=== PATIENT | female | born 1995 | race Two or more races ===

== ENCOUNTER 2022-11-04 16:32 | Emergency (ER) | payer SELFPAY ==
--- NOTE | 2022-11-04 16:38 | ED.WOUNDLAC ---
HPI - Wound/Laceration General Chief Complaint: Wound/Laceration Stated Complaint: laceration finger Time Seen by Provider: 11/04/22 16:37 Source: patient Mode of arrival: ambulatory Limitations: no limitations History of Present Illness HPI narrative: Mahogany is a 26-year-old female patient today presenting to clinic today with a laceration to the left distal index finger. She reports she was cutting a lemon and took her eye off the knife and actually cut her finger. Her tetanus shot status is not up-to-date. Related Data Home Medications Medication Instructions Recorded Confirmed No Home Medications 11/04/22 11/04/22 Allergies Allergy/AdvReac Type Severity Reaction Status Date / Time No Known Allergies Allergy Unverified 11/04/22 16:38 Review of Systems Review of Systems: Pertinent positives per HPI. Patient denies any fever, chills, rash, headache, visual changes, dizziness, cough, runny nose, sore throat, shortness of breath, chest pain, palpitations, nausea, vomiting, diarrhea, constipation, abdominal pain, or any urinary issues. PMFSH Social History Social History Smoking status: Current every day smoker Alcohol intake: never Comments At the time of my signature, I reviewed and agree with the nursing past medical, surgical, social, and family history. There is no relevant family history pertinent to the patient complaint. Exam Narrative: General: Well-developed, well nourished, in no apparent distress Head: Normocephalic, atraumatic. Cardio: Regular rate and rhythm, s1 and s2 normal, no murmur appreciated. Resp: Clear to auscultation bilaterally, no rhonchi, rales, wheezing or rubs. Integumentary: [place], warm, and dry, 0.5 cm laceration to the left index finger without involvement of the nail Course Course Emergency Course: Portions of this record may have been created with voice recognition software. Level of Care: Express Care Visit Vital Signs Vital signs: Vital Signs Temperature 36.9 C 11/04/22 16:39 Pulse Rate 95 11/04/22 16:39 Respiratory Rate 16 11/04/22 16:39 Blood Pressure 123/64 11/04/22 16:39 Pulse Oximetry 100 11/04/22 16:39 Oxygen Delivery Room Air 11/04/22 16:39 Temperature 36.9 C 11/04/22 16:49 Pulse Rate 95 11/04/22 16:49 Respiratory Rate 16 11/04/22 16:49 Blood Pressure 123/64 11/04/22 16:49 Pulse Oximetry 100 11/04/22 16:49 Oxygen Delivery Room Air 11/04/22 16:49 Vital signs reviewed Procedures Laceration Laceration 1: Date: 11/04/22 Side (If applicable): left Size (cm): 0.5 Description: linear and flap Depth: simple, single layer Local Anesthetic: lidocaine 1% Amount of anesthesia used (mL): 2.5 Pre-repair: wound explored and irrigated ====== Skin Level ====== Skin layer closed with: nylon Size (cm): 5-0 Number of sutures: 3 Technique: simple, interrupted ====== Subcutaneous Layer ====== ====== Muscle Layer ====== ====== Tendon Layer ====== Dressing: Verbal consent obtained for laceration repair. Risk and benefits explained and patient voiced understanding. Area was cleansed with Techni care and a 25 gauge needle was then used to instill (2.5) ml of 1% lidocaine without epi to create a digital block to the distal finger. Area was prepped and draped using sterile technique. A 5-0 suture on a p needle was used to place (3) interrupted sutures bringing the wound edges together- well approximated. Patient tolerated procedure well. Sterile dressing applied. MDM - Wound/Laceration MDM Narrative Medical decision making narrative: At the time of visit patient is resting comfortably on the exam table. patient has distal finger laceration without nail involvement. 0.5 cm laceration to the distal finger. Laceration repair per was performed and 3
[2022-11-04 16:39] VITALS: BP 123/64; PULSE 95; RESP 16; TEMP 36.9; O2SAT 100
[2022-11-04 16:49] VITALS: BP 123/64; PULSE 95; RESP 16; TEMP 36.9; O2SAT 100
--- NOTE | 2022-11-04 16:54 | PC.NURSE ---
stated is self pay and would prefer to hold on tdap at this time.
== END 2022-11-04 17:20 | disposition home or self-care (01) ==
PROVIDERS: Emergency Provider Nurse Practitioner Family; PCP Emergency Medicine
DX: S61.211A Laceration without foreign body of left index finger without damage to nail, initial encounter (principal); W26.0XXA Contact with knife, initial encounter; Y93.G1 Activity, food preparation and clean up; F17.200 Nicotine dependence, unspecified, uncomplicated
CPT/HCPCS: 12001; 99212; G0463

== ENCOUNTER 2022-11-11 16:45 | Emergency (ER) | payer SELFPAY ==
[2022-11-11 16:51] VITALS: BP 120/71; PULSE 100; RESP 18; TEMP 36.3; O2SAT 100
--- NOTE | 2022-11-11 17:07 | ED.SKABFB ---
HPI - Skin/Abscess/Foreign Bdy General Chief complaint: Skin/Abscess/Foreign Body Stated complaint: stitches removal Time Seen by Provider: 11/11/22 17:05 Source: patient Mode of arrival: ambulatory Limitations: no limitations History of Present Illness HPI narrative: Mahogany is a 27-year-old female patient presenting to the clinic today for suture removal of the left index finger. States she went to [facility] for hand swelling in the same extremity however the wound does not appear to be infected. X-rays were completed of her left hand and were negative. They placed her on an antibiotic for possible infection Related Data Home Medications Medication Instructions Recorded Confirmed Unknown Antibiotic 11/11/22 Allergies Allergy/AdvReac Type Severity Reaction Status Date / Time No Known Allergies Allergy Verified 11/11/22 16:53 Review of Systems Review of Systems: Pertinent positives per HPI. Patient denies any fever, chills, rash, headache, visual changes, dizziness, cough, runny nose, sore throat, shortness of breath, chest pain, palpitations, nausea, vomiting, diarrhea, constipation, abdominal pain, or any urinary issues. PMFSH Social History Social History Smoking status: Current every day smoker Alcohol intake: never Comments At the time of my signature, I reviewed and agree with the nursing past medical, surgical, social, and family history. There is no relevant family history pertinent to the patient complaint. Exam Narrative: General: Well-developed, well nourished, in no apparent distress Head: Normocephalic, atraumatic. Cardio: Regular rate and rhythm, s1 and s2 normal, no murmur appreciated. Resp: Clear to auscultation bilaterally, no rhonchi, rales, wheezing or rubs. Integumentary: [place], warm, and dry, intact without lesion, no rashes. well-healing wound to the distal left index finger. 3 interrupted sutures were removed- patient does have swelling to the left hand no redness or discharge noted around the wound Course Course Emergency Course: Portions of this record may have been created with voice recognition software. Level of Care: Express Care Visit Vital Signs Vital signs: Vital Signs Temperature 36.3 C L 11/11/22 16:51 Pulse Rate 100 11/11/22 16:51 Respiratory Rate 18 11/11/22 16:51 Blood Pressure 120/71 11/11/22 16:51 Pulse Oximetry 100 11/11/22 16:51 Oxygen Delivery Room Air 11/11/22 16:51 Temperature 36.3 C L 11/11/22 16:51 Pulse Rate 100 11/11/22 16:51 Respiratory Rate 18 11/11/22 16:51 Blood Pressure 120/71 11/11/22 16:51 Pulse Oximetry 100 11/11/22 16:51 Oxygen Delivery Room Air 11/11/22 16:51 Vital signs reviewed MDM - Skin/Abscess/Foreign Bdy MDM Narrative Medical decision making narrative: At the time of visit patient is resting comfortably on the exam table. Three interrupted sutures were removed. Wound appears to be well healing. Discharge Plan Discharge Clinical Impression: Encounter for removal of sutures Patient Disposition: Home, Self-Care Condition: Stable Instructions: Antibiotic Form, Stitches Removal (ED) Additional Instructions: 3 sutures were removed from the left index finger today follow-up with your PCP as needed Prescriptions: No Action Unknown Antibiotic Follow-up/Referrals: Iván Talbert MD [Primary Care Provider] - Time of Disposition: 17:08 Quality NIHSS Nursing Documentation ED NIHSS nursing documentation: reviewed/agree
== END 2022-11-11 17:18 | disposition home or self-care (01) ==
PROVIDERS: Emergency Provider Nurse Practitioner Family; PCP Emergency Medicine
DX: Z48.02 Encounter for removal of sutures (principal); F17.200 Nicotine dependence, unspecified, uncomplicated
CPT/HCPCS: 99211; G0463

== ENCOUNTER → 2022-12-02 16:44 | Outpatient (CLI) | payer SELFPAY ==
--- NOTE | ~2022-12-02 | XR_ITS ---
EXAMINATION: XR chest 2V DATE: 12/02/2022 16:59 INDICATION: Pleuritic chest pain. TECHNIQUE: Frontal and lateral views of the chest were obtained. COMPARISON: CT abdomen and pelvis 04/23/2016 FINDINGS: There is no pneumonia, pleural effusion, or pneumothorax. The heart size is normal. IMPRESSION: 1. No acute cardiopulmonary disease. Reviewed, dictated and finalized at location A. AND CREDIT MANAGER
--- NOTE | ~2022-12-02 | XR_ITS ---
EXAMINATION: XR hand LT min 3V DATE: 12/02/2022 17:00 INDICATION: Left hand swelling. TECHNIQUE: 3 views of left hand were obtained. COMPARISON: None. FINDINGS: Bone alignment is normal. No fracture. Joint spaces are well maintained. IMPRESSION: 1. Normal left hand. Reviewed, dictated and finalized at location A. ATIONS ENGINEER IMPRESSION: 1. Normal left hand.
== END ==
PROVIDERS: PCP Emergency Medicine; Visit Provider Emergency Medicine
DX: R07.81 Pleurodynia (principal); R22.32 Localized swelling, mass and lump, left upper limb; W19.XXXA Unspecified fall, initial encounter
CPT/HCPCS: 71046; 73130

== ENCOUNTER 2023-07-16 23:19 | Emergency (ER) | payer OTHER, SELFPAY ==
[2023-07-16 23:23] VITALS: BP 132/81; PULSE 78; RESP 14; TEMP 36.4; O2SAT 98
--- NOTE | 2023-07-16 23:31 | PC.NURSE ---
pt. to triage stating my daughter isn't feeling well, i need to go. pt. VSS
== END 2023-07-16 23:31 | disposition left against medical advice (07) ==
PROVIDERS: PCP Emergency Medicine
DX: M79.642 Pain in left hand (principal)
CPT/HCPCS: 99199

== ENCOUNTER 2023-10-09 23:07 | Emergency (ER) | payer OTHER, SELFPAY ==
--- NOTE | ~2023-10-09 | CT_ITS ---
EXAMINATION: CT abdomen pelvis w con INDICATION: Left flank pain TECHNIQUE: Computed tomographic images of the abdomen and pelvis were obtained after the administrati on of 100 cc of Omnipaque 350 intravenous contrast. The dose-length product (DLP) was 492.46 mGy-cm. Automated exposure control and iterative reconstruction technique were employed. COMPARISON: 04/23/2016 FINDINGS: The lung bases are clear. The heart size is normal. The liver, spleen, pancreas, gallbladde r, and adrenal glands are normal. The kidneys are unremarkable. No pathologically enlarged abdominal or pelvic lymph nodes are identified. No free intraperitoneal gas or evidence of bowel obstruction. T he appendix is normal. An IUD is present in expected position. IMPRESSION: 1. No CT correlate for the patient's symptoms. Reviewed, dictated and finalized at location F. N GRADER
[2023-10-09 23:13] VITALS: BP 140/80; PULSE 85; RESP 16; TEMP 36.2; O2SAT 99
[2023-10-09 23:39] LABS: Basophils Percent Auto 0.2 % (0.2-1.2); Eosinophils Absolute Auto 0.1 K/mm3 (0-0.3); Hemoglobin 12.3 g/dL (12.0-15.0); Immature Granulocyte Absolute 0.04 K/mm3 (0.00-0.031); Immature Granulocyte Percent A 0.3 % (0-0.5); Lymphocytes Absolute Auto 2.99 K/mm3 (0.9-3.2); Lymphocytes Percent Auto 23.8 % (18.3-44.2); Mean Corpuscular HGB Conc 31.5 g/dl (32-36); Mean Corpuscular Hemoglobin 24.6 pg (26-34); Mean Corpuscular Volume 77.8 fl (80-100); Mean Platelet Volume 11.3 fl (7.4-10.4); Monocytes Absolute Auto 0.7 K/mm3 (0.1-0.6); Monocytes Percent Auto 5.4 % (2.6-8.5); Neutrophils Absolute Auto 8.7 K/mm3 (1.3-6.7); Neutrophils Percent Auto 69.3 % (45.5-73.1); Platelet Count Result 228 k/mm3 (150-375); Red Blood Count 5.01 M/mm3 (4.2-5.4); Red Cell Distribution Width 15.9 % (11.5-14.5); White Blood Count 12.6 K/mm3 (4.5-10.0)
[2023-10-09 23:48] LABS: Alanine Aminotransferase 22 U/L (6-35); Albumin Level 4.6 g/dL (3.5-5.1); Alkaline Phosphatase 60 U/L (38-126); Anion Gap 12 mmol/L (8-16); Aspartate Amino Transferase 27 U/L (14-36); Bilirubin,Total 0.7 mg/dL (0.2-1.3); Blood Urea Nitrogen 7 mg/dL (7-17); Calcium 9.5 mg/dL (8.4-10.2); Carbon Dioxide 21 mmol/L (22-30); Chloride 103 mmol/L (98-107); Estimated CRCL calculation 155 ml/min; Estimated Glomerular Filt Rate > 60; Glucose 149 mg/dL (65-110); Potassium 3.3 mmol/L (3.4-5.0); Sodium 136 mmol/L (137-145)
[2023-10-10] VITALS (18 sets, daily range): BP systolic 126–138; BP diastolic 77–100; PULSE 74–78; RESP 16–20; O2SAT 96–100
[2023-10-10 03:54] LABS: Appearance Urine Clear (Clear); Bacteria Urine None Seen /hpf; Bilirubin Urine Negative (Negative); Blood Urine 3+ (Negative); Color Urine Yellow (Yellow); Glucose Urine UA Negative (Negative); Ketones Urine Negative (Negative); Leukocyte Esterase Ur Trace LEU/UL (Negative); Need Manual Microscopic Reviewed; Nitrate Urine Negative (Negative); Non Pathogenic Casts 0-2; Protein Urine Negative (Negative); Specific Grav Ur 1.003 (1.001-1.035); Squamous Epithelial Cell Urine Occasional /hpf (Few); Urobilinogen Urine 0.2 mg/dL (<2.0); WBC Urine 0-5 /hpf; pH Urine 6.5 (5.0-9.0)
[2023-10-10 03:58] LABS: Add Urine Microscopic? YES
[2023-10-10] MEDS: SODIUM CHLORIDE 0.9% IV 1,000 ML 999 ML IV CONT (07:51)
[2023-10-10] MEDS: KETOROLAC 30 MG/ML VIAL (*BKC) IV PUSH (07:52)
--- NOTE | 2023-10-10 08:09 | ED.BACK ---
HPI - Back Pain/Injury General Chief Complaint: Back Pain/Injury Stated Complaint: back pain Time Seen by Provider: 10/10/23 07:07 Source: patient, RN notes reviewed and old records reviewed Mode of arrival: ambulatory Limitations: no limitations History of Present Illness HPI Narrative: This is a 27 year old female who presents for evaluation of left flank pain. She developed pain 1 week ago . She reports pain starts on left flank and radiates across her back pain. Her pain resolved but it returned last night. She reports pain is worse with movement such as sitting up. She took aleve last night. She was sleeping when I walked into room. She denies associated cough, sob, nausea, vomiting, or urinary symptoms. She denies any trauma. Related Data Home Medications Medication Instructions Recorded Confirmed cephalexin 500 mg capsule mg 10/10/23 paroxetine HCl 20 mg tablet mg PO 10/10/23 Allergies Allergy/AdvReac Type Severity Reaction Status Date / Time No Known Allergies Allergy Verified 10/10/23 04:35 Review of Systems Constitutional: Constitutional: Denies weakness Cardiovascular: Cardiovascular: Denies syncope, Denies rapid heart rate, Denies irregular heart rhythm, Denies leg edema and Denies dyspnea Respiratory: Respiratory: Denies chest congestion, Denies hemoptysis, Denies excessive phlegm production and Denies dyspnea Gastrointestinal: Gastrointestinal: Denies abdominal pain, Denies hematochezia, Denies diarrhea and Denies vomiting Genitourinary: Genitourinary: Denies hematuria, Denies dysuria and Reports flank pain Musculoskeletal: Musculoskeletal: Reports back pain, Denies joint swelling, Denies loss of height and Denies muscle weakness Neurologic: Denies syncope, Denies focal weakness and Denies weakness [facility] Past Medical History Medical History Carpal tunnel syndrome of left wrist Gestational hypertension Surgical History Surgical History History of gynecological procedure (07/18/19) paragard Insertion Social History Social History Smoking packs per day: 0.5 Smoking cigarettes per day: 10.0 Smoking status: Current every day smoker Tobacco type: cigarettes Alcohol intake: never Substance use: never Substance use type: does not use Living arrangements: other Additional living arrangements comments: Occupation/Education: occupation Additional occupation/education comments: waiteress Gender identity (if verbalized by the patient): Female Sexual Orientation (if Verbalized by the Patient): Straight or Heterosexual Exam Const: General: no acute distress and alert Nutritional Appearance: well nourished Orientation/consciousness: patient oriented x3 Limitations: no limitations HENMT: Head: normal to inspection Eyes: EOM: EOMs intact bilaterally Neck: Neck: normal visual inspection Chest: Chest palpation & inspection: normal inspection of the chest Resp: Effort & Inspection: normal respiratory effort Auscultation: clear to auscultation bilaterally Cardio: Rate: regular rate Rhythm: regular rhythm Heart sounds: no murmurs GI: GI Palp: Yes Soft to palpation, No Tenderness to palpation present (GI), No Guarding due to palpation present (GI) and No Rigid due to palpation Auscultation: normal bowel sounds Skin: General skin exam: normal color Rashes: no rashes Wounds: no wounds Neuro: General: patient oriented x3, moves all extremities and CN's II-XI intact bilaterally Extrem: General: normal to inspection Psych: Mental Status: mental status grossly normal Affect: normal affect Attitude: cooperative Course Reevaluation(s) Reevaluation #1: I discussed with patient and mother that CT did not show any issues with her kidney. She does not have pyelonephritis on CT or labs
[2023-10-10 08:44] LABS: Lipase 35 U/L (23-300)
== END 2023-10-10 10:24 | disposition home or self-care (01) ==
PROVIDERS: Emergency Medicine; Emergency Provider General Practice; PCP Emergency Medicine
DX: R10.9 Unspecified abdominal pain (principal); F17.210 Nicotine dependence, cigarettes, uncomplicated
CPT/HCPCS: 36415; 74177; 80053; 81001; 81025; 83690; 85025; 96361; 96374; 99284; J1885; J7030; Q9967

== ENCOUNTER 2024-01-19 17:08 | Emergency (ER) | payer OTHER, SELFPAY ==
--- NOTE | ~2024-01-19 | XR_ITS ---
EXAMINATION: XR chest 2V DATE: 01/19/2024 18:31 INDICATION: Chest pain. TECHNIQUE: Frontal and lateral views of the chest were obtained. COMPARISON: Chest 2 views 12/02/2022, CT abdomen and pelvis 10/10/2023 FINDINGS: There is no pneumonia, pleural effusion, or pneumothorax. The heart size is normal. IMPRESSION: 1. No acute cardiopulmonary disease. Reviewed, dictated and finalized at location E. GENCY COMMUNICATIONS OFFICER
--- NOTE | 2024-01-19 17:10 | ECG_ITS ---
Measurements Intervals [place] Rate: 73 P: 27 WA: 156 QRS: 38 QRSD: 113 T: 22 QT: 379 QTc: 420 Interpretive Statements SINUS RHYTHM INCOMPLETE RIGHT BUNDLE BRANCH BLOCK BORDERLINE T WAVE ABNORMALITY- ANTERIOR LEADS BASELINE ARTIFACT- I, III, AVR, AVL, AVF, V1-V6 BORDERLINE ECG NO PREVIOUS ECG AVAILABLE FOR COMPARISON Electronically Signed On 01-19-2024 20:03:43 LUBE MAN by Willian Valdez D.O.
--- NOTE | 2024-01-19 17:11 | ED.CHESTPAIN ---
HPI - Chest Pain General Chief Complaint: Chest Pain Stated Complaint: chest heaviness Time Seen by Provider: 01/19/24 17:11 Focused HPI: This is a 28 year old female that presents to the ER for chest heaviness. Ongoing today. Associated with exertional dyspnea. Her doctor advised her to come to the ER to be seen. Reports a dry cough. Pain is worse with breathing. Denies fever or lower extremity edema. GENERAL: Well-appearing, well-nourished, and in no acute distress. HEAD: Normocephalic, atraumatic. CHEST: No respiratory distress. HEART: Regular rate NEURO: ?Alert and oriented x3. Patient screened in triage and initial orders placed.? ?Additional care and disposition to be based upon?diagnostic testing and treatment. Related Data Home Medications Medication Instructions Recorded Confirmed cephalexin 500 mg capsule mg 10/10/23 paroxetine HCl 20 mg tablet mg PO 10/10/23 Allergies Allergy/AdvReac Type Severity Reaction Status Date / Time No Known Allergies Allergy Verified 10/10/23 04:35 Review of Systems Review of Systems: CONSTITUTIONAL: Denies fever CARDIOVASCULAR: Reports chest pain. Denies edema. RESPIRATORY: Reports cough and dyspnea. All systems reviewed & are unremarkable except as noted in HPI and below PMFSH Past Medical History Medical History Carpal tunnel syndrome of left wrist Gestational hypertension Surgical History Surgical History History of gynecological procedure (07/18/19) paragard Insertion Social History Social History Smoking packs per day: 0.5 Smoking cigarettes per day: 10.0 Smoking status: Current every day smoker Tobacco type: cigarettes Alcohol intake: never Substance use: never Substance use type: does not use Living arrangements: other Additional living arrangements comments: Occupation/Education: occupation Additional occupation/education comments: waitshah[employer] Gender identity (if verbalized by the patient): Female Sexual Orientation (if Verbalized by the Patient): Straight or Heterosexual Exam Narrative: GENERAL: Well-appearing, well-nourished, and in no acute distress. HEAD: Normocephalic, atraumatic. EYES: EOMI. CHEST: Clear to auscultation. No respiratory distress. No wheezes rales or rhonchi HEART: Regular rate and rhythm. No murmur heard. Normal peripheral pulses. EXTREMITIES: Normal range of motion. No edema. SKIN: Warm, dry, no rash. NEURO: No focal deficits. Alert and oriented x3. PSYCH: Normal mood and affect Course Course Emergency Course: Patient eloped after MSE and before any further evaluation or management Vital Signs Vital signs: Vital Signs Temperature 97.6 F 01/19/24 17:21 Pulse Rate 81 01/19/24 17:21 Respiratory Rate 18 01/19/24 17:21 Blood Pressure 144/76 H 01/19/24 17:21 Pulse Oximetry 100 01/19/24 17:21 Temperature 97.6 F 01/19/24 17:21 Pulse Rate 81 01/19/24 17:21 Respiratory Rate 18 01/19/24 17:21 Blood Pressure 144/76 H 01/19/24 17:21 Pulse Oximetry 100 01/19/24 17:21 MDM - Chest Pain Lab Data 01/19/24 18:04 01/19/24 18:04 Labs: Lab Results 01/19/24 01/19/24 Range/Units 18:04 18:04 WBC 10.5 H (4.5-10.0) K/mm3 RBC 4.73 (4.2-5.4) M/mm3 Hgb 11.8 L (12.0-15.0) g/dL Hct 37.5 (37.0-47.0) % MCV 79.3 L (80-100) fl MCH 24.9 L (26-34) pg MCHC 31.5 L (32-36) g/dl RDW 15.6 H (11.5-14.5) % Plt Count 213 (150-375) k/mm3 MPV 11.5 H (7.4-10.4) fl Immature Gran % (Auto) 0.4 (0-0.5) % Neut % (Auto) 68.0 (45.5-73.1) % Lymph % (Auto) 23.3 (18.3-44.2) % [place] % (Auto) 6.9 (2.6-8.5) % Eos % (Auto) 1.1 (0-4.4) % Baso % (Auto) 0.3 (0.2-1.2) % Lymph # (Auto) 2.44 (0.9-3.2) K/mm3 [place] # (Auto)
[2024-01-19 17:21] VITALS: BP 144/76; PULSE 81; RESP 18; TEMP 36.4; O2SAT 100
[2024-01-19 18:12] LABS: Basophils Percent Auto 0.3 % (0.2-1.2); Eosinophils Absolute Auto 0.1 K/mm3 (0-0.3); Eosinophils Percent Auto 1.1 % (0-4.4); Hematocrit 37.5 % (37.0-47.0); Hemoglobin 11.8 g/dL (12.0-15.0); Immature Granulocyte Absolute 0.04 K/mm3 (0.00-0.031); Immature Granulocyte Percent A 0.4 % (0-0.5); Lymphocytes Absolute Auto 2.44 K/mm3 (0.9-3.2); Lymphocytes Percent Auto 23.3 % (18.3-44.2); Mean Corpuscular HGB Conc 31.5 g/dl (32-36); Mean Corpuscular Hemoglobin 24.9 pg (26-34); Mean Corpuscular Volume 79.3 fl (80-100); Mean Platelet Volume 11.5 fl (7.4-10.4); Monocytes Absolute Auto 0.7 K/mm3 (0.1-0.6); Monocytes Percent Auto 6.9 % (2.6-8.5); Neutrophils Absolute Auto 7.1 K/mm3 (1.3-6.7); Platelet Count Result 213 k/mm3 (150-375); Red Blood Count 4.73 M/mm3 (4.2-5.4); Red Cell Distribution Width 15.6 % (11.5-14.5); White Blood Count 10.5 K/mm3 (4.5-10.0)
[2024-01-19 18:22] LABS: Alanine Aminotransferase 22 U/L (6-35); Albumin Level 4.5 g/dL (3.5-5.1); Alkaline Phosphatase 63 U/L (38-126); Anion Gap 9 mmol/L (8-16); Aspartate Amino Transferase 25 U/L (14-36); Bilirubin,Total 0.6 mg/dL (0.2-1.3); Blood Urea Nitrogen 9 mg/dL (7-17); Calcium 9.3 mg/dL (8.4-10.2); Carbon Dioxide 24 mmol/L (22-30); Chloride 107 mmol/L (98-107); Estimated CRCL calculation 131 ml/min; Estimated Glomerular Filt Rate > 60; Glucose 116 mg/dL (65-110); Lipase 53 U/L (23-300); Potassium 3.3 mmol/L (3.4-5.0); Sodium 140 mmol/L (137-145)
[2024-01-19 18:26] LABS: INR 0.9; Prothrombin Time 12.5 Seconds (11.1-14.7)
[2024-01-19 18:27] LABS: Partial Thromboplastin Time 25.7 SECONDS (22.3-36.8)
[2024-01-19 18:33] LABS: Troponin I < 0.012 ng/mL (0.000-0.034)
[2024-01-19 18:37] LABS: D Dimer < 0.27 ug/mL (<0.48)
--- NOTE | 2024-01-19 20:24 | PC.NURSE ---
patient come sto the desk stating she needs to leave. Patient ambulates out of the waiting room without incident.
== END 2024-01-19 21:16 | disposition left against medical advice (07) ==
PROVIDERS: Emergency Provider Physician Assistant; PCP Emergency Medicine
DX: R07.9 Chest pain, unspecified (principal); F17.210 Nicotine dependence, cigarettes, uncomplicated; I45.10 Unspecified right bundle-branch block; R94.31 Abnormal electrocardiogram [ECG] [EKG]
CPT/HCPCS: 36415; 71046; 80053; 83690; 84484; 85025; 85380; 85610; 85730; 93005; 99199; 99284

== ENCOUNTER 2024-02-27 23:06 | Emergency (ER) | payer OTHER, SELFPAY ==
--- NOTE | ~2024-02-27 | XR_ITS ---
Left wrist Technique: PA, oblique, lateral, and ulnar deviation views were obtained. Clinical History: Pain Findings: No acute fracture or dislocation is seen. Osseous alignment is anatomic. Joint spaces are p reserved. Soft tissues are unremarkable. Impression: Unremarkable left wrist radiographs. Reviewed, dictated and finalized at location . Impression: Unremarkable left wrist radiographs.
--- NOTE | ~2024-02-27 | XR_ITS ---
Left Shoulder Technique: AP and scapular Y views were obtained. Clinical History: Pain Findings: No fracture or dislocation is seen. Osseous alignment is anatomic. The glenohumeral and acr omioclavicular joint spaces are preserved. Soft tissues are unremarkable. Impression: Unremarkable left shoulder radiographs. Reviewed, dictated and finalized at [facility]. Impression: Unremarkable left shoulder radiographs.
--- NOTE | ~2024-02-27 | XR_ITS ---
Left Hand Technique: PA, oblique, and lateral views were obtained. Clinical History: Pain Findings: No acute fracture or dislocation is seen. Osseous alignment is anatomic. Joint spaces are p reserved. Soft tissues are unremarkable. Impression: Unremarkable left hand. Reviewed, dictated and finalized at location M. Impression: Unremarkable left hand.
[2024-02-27 23:09] VITALS: BP 131/82; PULSE 108; RESP 20; TEMP 36.5; O2SAT 100
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
[2024-02-27] MEDS: ACETAMINOPHEN 500 MG TABLET 1000 MG PO (23:50)
[2024-02-28 01:54] VITALS: BP 130/75; PULSE 76; RESP 18; O2SAT 100
--- NOTE | 2024-03-10 11:05 | PC.NURSE ---
LATE ENTRY This note is being entered to document information to the patient's record. The following information was omitted on [02/27/24], by [Chani Gong RN]. Thumb spica applied to left wrist.
== END 2024-02-28 01:55 | disposition home or self-care (01) ==
PROVIDERS: Emergency Provider Physician Assistant; PCP Emergency Medicine
DX: S63.502A Unspecified sprain of left wrist, initial encounter (principal); S46.912A Strain of unspecified muscle, fascia and tendon at shoulder and upper arm level, left arm, initial encounter; F17.210 Nicotine dependence, cigarettes, uncomplicated; W18.39XA Other fall on same level, initial encounter; Y93.68 Activity, volleyball (beach) (court)
CPT/HCPCS: 29125; 73030; 73110; 73130; 99284; A4565; A9270

== ENCOUNTER 2024-06-11 19:17 | Emergency (ER) | payer OTHER, SELFPAY ==
[2024-06-11 19:32] VITALS: BP 133/74; PULSE 87; RESP 16; TEMP 37.3; O2SAT 99
--- NOTE | 2024-06-11 20:10 | ED.UPPEXIN ---
HPI - Extremity Injury (Upper) General Chief Complaint: Extremity Injury, Upper Stated Complaint: left shoulder pain Time Seen by Provider: 06/11/24 20:02 Source: patient and RN notes reviewed Mode of arrival: ambulatory Limitations: no limitations History of Present Illness HPI narrative: Patient presents today complaining of left shoulder pain x1 month. Denies numbness or tingling in the arm or hand. Currently rates her pain 7/10. Has been taking ibuprofen and applying ice without relief. Denies no new injury. Patient did injure her shoulder and hand in February 2024 and subsequently had some x-rays done in the emergency room at [facility]. Her shoulder x-ray was normal. She did see Dr Butterfield after this and was told all was good with her shoulder. Related Data Home Medications Medication Instructions Recorded Confirmed acyclovir 400 mg tablet See Rx Instructions .Route .COMPLEX 06/11/24 06/11/24 paroxetine HCl 20 mg tablet 20 mg PO DAILY 06/11/24 06/11/24 Allergies Allergy/AdvReac Type Severity Reaction Status Date / Time No Known Allergies Allergy Verified 06/11/24 19:36 Review of Systems Review of Systems: CONSTITUTIONAL: Denies body aches, fever, chills, or sweats. EYES: Denies visual changes, redness, or discharge. ENT: Denies rhinorrhea, congestion, sore throat, or otalgia. CARDIOVASCULAR: Denies chest pain, palpitations, or edema. RESPIRATORY: Denies cough or dyspnea. GASTROINTESTINAL: Denies abdominal pain, nausea, vomiting, or diarrhea. GENITOURINARY: Denies dysuria or hematuria. SKIN: Denies rash, itching, or wounds. MUSCULOSKELETAL: Denies back pain, or myalgia.+ left shoulder pain NEUROLOGIC: Denies headache, numbness, tingling, or weakness. PSYCH: Denies depression or anxiety. [facility], LATER [facility] Past Medical History Medical History Carpal tunnel syndrome of left wrist Gestational hypertension Surgical History Surgical History History of gynecological procedure (07/18/19) paragard Insertion Social History Social History Smoking packs per day: 0.5 Smoking cigarettes per day: 10.0 Smoking status: Current every day smoker Tobacco type: cigarettes Alcohol intake: never Substance use: never Substance use type: does not use Do You Feel Safe in your Home?: Yes Lack of Transportation: No Lack of Food: Never True Current Housing: Decline to Answer Concerned About Future Housing: No Difficulty Paying Gas/Electric Bills: No Difficulty Paying for Meds: No Currently Unemployed: No Education: Grade School Difficulty w/ Childcare or Family Care: No Living arrangements: other Additional living arrangements comments: Occupation/Education: occupation Additional occupation/education comments: waiteress Gender identity (if verbalized by the patient): Female Sexual Orientation (if Verbalized by the Patient): Straight or Heterosexual Comments At time of signature, I have reviewed and agree with nursing past medical, surgical, social and family history unless otherwise noted. Please see nursing chart for further information. There is no relevant family history pertinent to the presenting complaint Exam Narrative: GENERAL: Well-appearing, well-nourished, and in no acute distress. HEAD: Normocephalic, atraumatic. EYES: EOMI. No redness or drainage. Conjunctivae normal. ENT: Mucous membranes pink and moist. NECK: Normal AROM. CHEST: No respiratory distress. EXTREMITIES: Left shoulder: Tenderness to the anterior shoulder. Unable to per forearm even slight P ROM due to guarding and pain. No edema, deformity, ecchymosis, erythema. No tenderness posteriorly or laterally. Distal sensation intact. Capillary refill normal. Radial pulse normal. Full range of motion of t
== END 2024-06-11 20:22 | disposition home or self-care (01) ==
PROVIDERS: Emergency Provider Nurse Practitioner; PCP Emergency Medicine
DX: M25.512 Pain in left shoulder (principal); F17.210 Nicotine dependence, cigarettes, uncomplicated
CPT/HCPCS: 99213; G0463

== ENCOUNTER 2024-06-13 15:25 | Outpatient (CLI) | payer OTHER, SELFPAY ==
--- NOTE | ~2024-06-13 | XR_ITS ---
XR shoulder LT min 2V Ordering provider: Iván Talbert MD History: . L SHOULDER PAIN . Comparison: None. FINDINGS: BONES: No acute fracture or dislocation. JOINT SPACES: The acromioclavicular joint is normal. The glenohumeral joint is normal. SOFT TISSUES: Normal. IMPRESSION: No acute osseous abnormality left shoulder. Reviewed, dictated and finalized at location A.
== END 2024-06-13 15:26 | disposition home or self-care (01) ==
PROVIDERS: PCP Emergency Medicine; Visit Provider Emergency Medicine
DX: M25.512 Pain in left shoulder (principal)
CPT/HCPCS: 73030

== ENCOUNTER 2024-07-22 22:21 | Emergency (ER) | payer OTHER, SELFPAY ==
--- NOTE | ~2024-07-22 | XR_ITS ---
Clinical Indication: Chest pain, shortness of breath PA and lateral views of the chest: Comparison: 01/19/2024 Findings: The lungs are clear, without evidence of focal consolidation or pleural effusion. Cardiome diastinal silhouette is within normal limits. Bones and soft tissues are unremarkable. Impression: Normal chest. Reviewed, dictated and finalized at [facility]. Impression: Normal chest.
--- NOTE | 2024-07-22 22:21 | ECG_ITS ---
Test Date: 2024-07-22 22:28:23 Measurements Intervals [place] Rate: 72 P: 44 PA: 152 QRS: 47 QRSD: 107 T: 21 QT: 378 QTc: 414 Interpretive Statements SINUS RHYTHM INCOMPLETE RIGHT BUNDLE BRANCH BLOCK BORDERLINE ECG No previous ECG available for comparison Electronically Signed On 07-23-2024 08:38:52 CDT by Wililan Valdez D.O.
[2024-07-22 22:24] VITALS: BP 134/77; PULSE 83; RESP 20; TEMP 36.7; O2SAT 100
[2024-07-22 22:45] LABS: Basophils Absolute Auto 0.1 K/mm3 (0.0-0.1); Basophils Percent Auto 0.6 % (0.2-1.2); Eosinophils Absolute Auto 0.1 K/mm3 (0-0.3); Eosinophils Percent Auto 1.1 % (0-4.4); Hematocrit 36.1 % (37.0-47.0); Hemoglobin 11.6 g/dL (12.0-15.0); Immature Granulocyte Absolute 0.03 K/mm3 (0.00-0.031); Immature Granulocyte Percent A 0.3 % (0-0.5); Lymphocytes Absolute Auto 3.09 K/mm3 (0.9-3.2); Lymphocytes Percent Auto 29.2 % (18.3-44.2); Mean Corpuscular HGB Conc 32.1 g/dl (32-36); Mean Corpuscular Hemoglobin 24.6 pg (26-34); Mean Corpuscular Volume 76.6 fl (80-100); Mean Platelet Volume 11.4 fl (7.4-10.4); Monocytes Absolute Auto 0.6 K/mm3 (0.1-0.6); Monocytes Percent Auto 5.2 % (2.6-8.5); Neutrophils Absolute Auto 6.8 K/mm3 (1.3-6.7); Neutrophils Percent Auto 63.6 % (45.5-73.1); Platelet Count Result 218 k/mm3 (150-375); Red Blood Count 4.71 M/mm3 (4.2-5.4); Red Cell Distribution Width 16.4 % (11.5-14.5); White Blood Count 10.6 K/mm3 (4.5-10.0)
[2024-07-22 22:58] LABS: Alanine Aminotransferase 21 U/L (6-35); Albumin Level 4.7 g/dL (3.5-5.1); Alkaline Phosphatase 69 U/L (38-126); Anion Gap 10 mmol/L (4-12); Aspartate Amino Transferase 27 U/L (14-36); Bilirubin,Total 0.5 mg/dL (0.2-1.3); Blood Urea Nitrogen 10 mg/dL (7-17); Calcium 9.8 mg/dL (8.4-10.2); Carbon Dioxide 25 mmol/L (22-30); Chloride 103 mmol/L (98-107); Estimated CRCL calculation 113 ml/min; Estimated Glomerular Filt Rate > 60; Glucose 100 mg/dL (65-110); Lipase 76 U/L (23-300); Potassium 3.8 mmol/L (3.4-5.0); Sodium 138 mmol/L (137-145)
[2024-07-22 23:02] LABS: Partial Thromboplastin Time 24.1 Seconds (22.3-36.8); Prothrombin Time 13.3 Seconds (11.1-14.7)
[2024-07-22 23:09] LABS: Troponin I < 0.012 ng/mL (0.000-0.034)
--- NOTE | 2024-07-23 01:46 | ECG_ITS ---
Test Date: 2024-07-23 01:53:30 Measurements Intervals [place] Rate: 66 P: 53 MS: 145 QRS: 39 QRSD: 78 T: 25 QT: 397 QTc: 419 Interpretive Statements SINUS RHYTHM LOW QRS VOLTAGE IN PRECORDIAL LEADS EARLY PRECORDIAL R/S TRANSITION BORDERLINE ECG Compared to ECG 07/22/2024 22:28:23 Low QRS voltage now present Electronically Signed On 07-23-2024 08:42:20 CDT by Willian Valdez D.O.
[2024-07-23 02:13] LABS: Troponin I < 0.012 ng/mL (0.000-0.034)
[2024-07-23 04:57] VITALS: BP 116/86; PULSE 71; RESP 16; O2SAT 100
[2024-07-23 06:21] VITALS: BP 110/74; PULSE 74; RESP 15; O2SAT 99
--- NOTE | 2024-07-23 06:30 | ED.CHESTPAIN ---
HPI - Chest Pain General Chief Complaint: Chest Pain Stated Complaint: CP, SOB Time Seen by Provider: 07/23/24 03:00 Related Data Home Medications Medication Instructions Recorded Confirmed acyclovir 400 mg tablet See Rx Instructions .Route .COMPLEX 06/11/24 06/11/24 paroxetine HCl 20 mg tablet 20 mg PO DAILY 06/11/24 06/11/24 Allergies Allergy/AdvReac Type Severity Reaction Status Date / Time No Known Allergies Allergy Verified 06/11/24 19:36 [facility] Past Medical History Medical History Carpal tunnel syndrome of left wrist Gestational hypertension Surgical History Surgical History History of gynecological procedure (07/18/19) paragard Insertion Social History Social History Smoking packs per day: 0.5 Smoking cigarettes per day: 10.0 Smoking status: Current every day smoker Tobacco type: cigarettes Alcohol intake: never Substance use: never Substance use type: does not use Do You Feel Safe in your Home?: Yes Lack of Transportation: No Lack of Food: Never True Current Housing: Decline to Answer Concerned About Future Housing: No Difficulty Paying Gas/Electric Bills: No Difficulty Paying for Meds: No Currently Unemployed: No Education: Grade School Difficulty w/ Childcare or Family Care: No Living arrangements: other Additional living arrangements comments: Occupation/Education: occupation Additional occupation/education comments: [employer] Gender identity (if verbalized by the patient): Female Sexual Orientation (if Verbalized by the Patient): Straight or Heterosexual Course Vital Signs Vital signs: Vital Signs Temperature 98.0 F 07/22/24 22:24 Pulse Rate 83 07/22/24 22:24 Respiratory Rate 20 07/22/24 22:24 Blood Pressure 134/77 07/22/24 22:24 Pulse Oximetry 100 07/22/24 22:24 Oxygen Delivery Room Air 07/22/24 22:24 Temperature 98.0 F 07/22/24 22:24 Pulse Rate 74 07/23/24 06:21 Respiratory Rate 15 07/23/24 06:21 Blood Pressure 110/74 07/23/24 06:21 Pulse Oximetry 99 07/23/24 06:21 Oxygen Delivery Room Air 07/22/24 22:24 MDM - Chest Pain Lab Data 07/22/24 22:36 07/22/24 22:36 Labs: Lab Results 07/22/24 07/23/24 Range/Units 22:36 01:44 WBC 10.6 H (4.5-10.0) K/mm3 RBC 4.71 (4.2-5.4) M/mm3 Hgb 11.6 L (12.0-15.0) g/dL Hct 36.1 L (37.0-47.0) % MCV 76.6 L (80-100) fl MCH 24.6 L (26-34) pg MCHC 32.1 (32-36) g/dl RDW 16.4 H (11.5-14.5) % Plt Count 218 (150-375) k/mm3 MPV 11.4 H (7.4-10.4) fl Immature Gran % (Auto) 0.3 (0-0.5) % Neut % (Auto) 63.6 (45.5-73.1) % Lymph % (Auto) 29.2 (18.3-44.2) % [place] % (Auto) 5.2 (2.6-8.5) % Eos % (Auto) 1.1 (0-4.4) % Baso % (Auto) 0.6 (0.2-1.2) % Lymph # (Auto) 3.09 (0.9-3.2) K/mm3 [place] # (Auto) 0.6 (0.1-0.6) K/mm3 Eos # (Auto) 0.1 (0-0.3) K/mm3 Baso # (Auto) 0.1 (0.0-0.1) K/mm3 Abs Immat Gran (auto) 0.03 (0.00-0.031) K/mm3 Absolute Neuts (auto) 6.8 H (1.3-6.7) K/mm3 Absolute Nucleated RBC 0.000 (0.0-0.012) K/mm3 Nucleated RBC % 0.0 (0.0-0.2) % PT 13.3 (11.1-14.7) Seconds INR 1.0 APTT 24.1 (22.3-36.8) Seconds Sodium 138 (137-145) mmol/L Potassium 3.8 (3.4-5.0) mmol/L Chloride 103 (98-107) mmol/L Carbon Dioxide 25 (22-30) mmol/L Anion Gap 10 (4-12) mmol/L BUN 10 (7-17) mg/dL Creatinine 0.70 (0.7-1.0) mg/dL Estim Creat Clear Calc 113 ml/min Estimated GFR > 60 (59 - ) Glucose 100 (65-110) mg/dL Calcium 9.8 (8.4-10.2) mg/dL Total Bilirubin 0.5 (0.2-1.3) mg/dL AST 27 (14-36) U/L ALT 21 (6-35) U/L Alkaline Phosphatase 69 (38-126) U/L Troponin I < 0.012 < 0.012 (0.000-0.034) ng/mL T
== END 2024-07-23 06:54 | disposition home or self-care (01) ==
PROVIDERS: Emergency Provider Emergency Medicine; PCP Emergency Medicine
DX: J40 Bronchitis, not specified as acute or chronic (principal); F17.210 Nicotine dependence, cigarettes, uncomplicated; Z79.899 Other long term (current) drug therapy; I45.10 Unspecified right bundle-branch block; R94.31 Abnormal electrocardiogram [ECG] [EKG]
CPT/HCPCS: 36415; 71046; 80053; 83690; 84484; 85025; 85610; 85730; 93005; 99284